=== PATIENT | male | born 1980 ===

== ENCOUNTER 2018-05-27 14:58 | Inpatient (IN) | payer MEDICAID ==
--- NOTE | 2018-05-27 17:10 | C.PDOC ---
History Of Present Illness 38 y/o male with a PMHx of ETOH abuse (drinks 3L of alcohol per day), presents accompanied by family for evaluation of intermittent frontal headache, associated with dizziness at times. Patient is also complaining of 1 year RUQ and epigastric pain with no associated nausea or vomiting. Denies head trauma. Denies any visual loss, neck stiffness, fevers, chills, or URI symptoms. Reports he drank only 1L today. Time Seen by Provider: 05/27/18 15:48 Chief Complaint (Nursing): Abdominal Pain History Per: Teller Coordinator (Sofia historic interpreter #[id number]) History/Exam Limitations: no limitations Onset/Duration Of Symptoms: Intermittent Episodes Current Symptoms Are (Timing): Still Present Location Of Pain/Discomfort: RUQ, Epigastric Past Medical History Reviewed: Historical Data, Nursing Documentation, Vital Signs Vital Signs: Last Vital Signs Temp 98.2 F 05/27/18 16:04 Pulse 93 H 05/27/18 16:04 Resp 16 05/27/18 16:04 BP 145/96 H 05/27/18 16:04 Pulse Ox 99 05/27/18 16:04 - Medical History PMH: No Chronic Diseases Surgical History: No Surg Hx Family History: States: No Known Family Hx - Social History Hx Alcohol Use: Yes Hx Substance Use: No - Immunization History Hx Tetanus Toxoid Vaccination: No Hx Influenza Vaccination: No Hx Pneumococcal Vaccination: No Review Of Systems Constitutional: Negative for: Fever, Chills Eyes: Negative for: Vision Change Cardiovascular: Negative for: Chest Pain Respiratory: Negative for: Shortness of Breath Gastrointestinal: Positive for: Abdominal Pain. Negative for: Nausea, Vomiting, Diarrhea Genitourinary: Negative for: Dysuria, Hematuria Musculoskeletal: Negative for: Neck Pain Neurological: Positive for: Headache, Dizziness. Negative for: Weakness, Numbness, Change in Speech Psych: Positive for: Withdrawal (Tremors), Other (Daily ETOH abuse). Negative for: Suicidal ideation (or homicidal) Physical Exam - Physical Exam Appears: Non-toxic, In Acute Distress (mild discomfort), Other (Appears uncomfortable) Skin: Warm, Dry Head: Atraumatic, Normacephalic Eye(s): bilateral: Normal Inspection, PERRL, EOMI Tongue: Other (Tongue fasciculations) Neck: Normal ROM Chest: Symmetrical Cardiovascular: Rhythm Regular, Other (Tachycardic) Respiratory: No Accessory Muscle Use, No Rhonchi, No Wheezing, Other (Lungs clear to auscultation) Gastrointestinal/Abdominal: Soft, Tenderness (to the epigastrium and RUQ), No D istention, No Guarding, No Rebound Extremity: Normal ROM, No Pedal Edema, No Deformity, Other (+ Tremors) Pulses: Left Radial: Normal, Right Radial: Normal Neurological/Psych: Oriented x3, Normal Cranial Nerves, Normal Motor (strength intact, equal bilaterally), Normal Sensation ED Course And Treatment - Laboratory Results Result Diagrams: 05/27/18 17:38 O2 Sat by Pulse Oximetry: 99 (RA) Pulse Ox Interpretation: Normal Medical Decision Making Medical Decision Making: Plan: Labs and EKG ordered and reviewed. Administered 1 mg IV Ativan, 20 mg IV Pepcid, and IVF banana bag. Will order CT Head to r/o intracranial abnormality, ruq sonogram to eval liver and gb. [address] Bruce, will admit to his service. Disposition Discussed With : Ortega Bruce Doctor Will See Patient In The: Hospital - Disposition Disposition: HOSPITALIZED Disposition Time: 18:16 Condition: FAIR Forms: [facility] (H[place]er) - Clinical Impression Clinical Impression: Alcohol withdrawal, Alcohol intoxication - PA / UPTWIST SPINNER / Resident Statement MD/DO has reviewed & agrees with the documentation as recorded. - Scribe Statement The provider has reviewed the documentation as recorded by the Scribe Viviana Wharton All medical record entries made by the Scribe were at my direction and pers onally dictated by me. I have reviewed the chart and agree that the record accurately reflects my personal performance of the history, physical exam, medical decision making, and the department course for this patient. I have also personally directed, reviewed, and agree with the discharge instructions and disposition.
[2018-05-27 17:41] LABS: BASO # 0.1 K/uL (0.0-0.2); BASO % 0.8 % (0.0-2.0); EOS # 0.1 K/uL (0.0-0.7); EOS % 0.8 % (0.0-4.0); HEMOGLOBIN 13.5 g/dL (12.0-18.0); LYMPH # 1.9 K/uL (1.0-4.3); LYMPH % 29.5 % (20.0-40.0); MEAN CELL VOLUME 81.7 fL (80.0-94.0); MEAN CORPUSCULAR HEMOGLOBIN 27.2 pg (27.0-31.0); MEAN CORPUSCULAR HGB CONC 33.3 g/dL (33.0-37.0); MEAN PLATELET VOLUME 6.8 fL (7.2-11.7); MONO # 0.6 K/uL (0.0-0.8); MONO % 10.1 % (0.0-10.0); NEUT # 3.8 K/uL (1.8-7.0); NEUT % 58.8 % (50.0-75.0); NRBC % 0.1 % (0.0-2.0); RBC 4.98 Mil/uL (4.40-5.90); RED CELL DISTRIBUTION WIDTH 14.2 % (11.5-14.5); WHITE BLOOD COUNT 6.4 K/uL (4.8-10.8)
[2018-05-27] MEDS ORDERED: Multivitamin (MVI) 10 ML, Thiamine 100 MG, Folic Acid 1 MG in Sodium Chloride 0.9% 1,00... IV ONE (17:41)
[2018-05-27 17:49] LABS: SQUAMOUS EPITHIAL < 1 /hpf (0-5); URINE BACTERIA RARE (<OCC); URINE BILIRUBIN NEGATIVE (NEGATIVE); URINE BLOOD 1+ (NEGATIVE); URINE CLARITY Clear (Clear); URINE COLOR Straw (YELLOW); URINE GLUCOSE (UA) NORMAL (Normal); URINE LEUKOCYTE ESTERASE NEG Leu/uL (Negative); URINE PROTEIN 2+ mg/dL (NEGATIVE); URINE UROBILINOGEN NORMAL mg/dL (0.2-1.0)
[2018-05-27 17:54] LABS: ALB/GLOB RATIO 1.4 (1.0-2.1); ALBUMIN 5.1 g/dL (3.5-5.0); ALT/SGPT 68 U/L (21-72); AST/SGOT 118 U/L (17-59); BLOOD UREA NITROGEN 3 mg/dL (9-20); GFR NON-AFRICAN AMERICAN > 60; LIPASE 219 U/L (23-300)
[2018-05-27 18:01] LABS: PROTHROMBIN TIME 10.7 SECONDS (9.7-12.2)
--- NOTE | 2018-05-27 18:27 | CT ---
Date of service: 05/27/2018 PROCEDURE: CT HEAD WITHOUT CONTRAST. HISTORY: Intermittent headache. History of ETOH., denies trauma COMPARISON: None available. TECHNIQUE: Axial computed tomography images were obtained through the head/brain without intravenous contrast. Radiation dose: Total exam DLP = 1002.57 mGy-cm. This CT exam was performed using one or more of the following dose reduction techniques: Automated exposure control, adjustment of the mA and/or kV according to patient size, and/or use of iterative reconstruction technique. FINDINGS: HEMORRHAGE: No acute parenchymal, subarachnoid or extra-axial hemorrhage. BRAIN: No evidence of large acute infarct. No obvious parenchymal nor extra-axial masses or collections seen on this noncontrast study. Very mild generalized volume loss. VENTRICLES: No obstructive hydrocephalus. CALVARIUM: Calvarium intact however note made of old fracture deformity right lamina papyracea through which small to medium amount of orbital fat has herniated occupying several collapsed right-sided ethmoid air cells. PARANASAL SINUSES: Unremarkable as visualized. No significant inflammatory changes. MASTOID AIR CELLS: Unremarkable as visualized. No inflammatory changes. OTHER FINDINGS: None. IMPRESSION: No acute intracranial hemorrhage. Mild generalized volume loss.
[2018-05-27] MEDS: Sodium Chloride 0.9% 1,000 ML IV SCH (20:30)
--- NOTE | 2018-05-27 21:00 | CP.PCM.HP ---
<Charito Avilez P - Last Filed: 05/27/18 21:19> History of Present Illness - History of Present Illness History of Present Illness: Medicine H&P CC: Abdominal pain HPI: 38 year old male with PMHx of alcohol use disorder presents to ED complaining of severe generalized abdominal pain that radiates to bilateral flanks. Pain began 5 days ago and severely worsened today. Patient states he has been drinking one to two 3L bottles of whisky per day for the past month. However today, he was only able to drink 1/2 bottle due to the abdominal pain. Associated symptoms include chills, headache, dizziness, and feeling too weak to walk. Reports nausea and 3 episodes of vomiting 2 days ago, non-bloody. Also states he has not eaten in the past 2 weeks due to excessive drinking. Denies fever, cough, shortness of breath, palpitations, hematemesis, hematochezia, dysuria, and sick contacts. States he shakes when he stops drinking. Denies history of withdrawal seizure PMHx: Alcohol use disorder PSHx: denies Meds: none Allergies: denies FamHx: denies SocHx: Drinks one to two 3L bottles of whisky per day for 1-2 months at a time for the past 3 years. Denies tobacco and drugs. Lives with a friend. Works in construction PMD: none Proxy: Tyrone Rogers, brother: [phone] Review of Systems: -Gen: No fever, + chills, + headache, No lethargy, + weakness. -HEENT: + dizziness, No change in vision, No change in hearing, No sore throat, No dysphagia, No nasal congestion, No mucous. -Cardio: No palpitations, No lower extremity edema, No orthopnea. -Resp: No cough, No dyspnea, No hemoptysis, No wheezing, No pain on inspiration. -GI: + abdominal pain, + nausea/vomiting, No diarrhea/constipation, No hematochezia, No hematemesis. -: No dysuria, No urinary freq, No incontinence, No hematuria, No change in urinary stream. -MSK: + back pain, No muscle weakness, No radiating pain. -Skin: No itching, No rash, No lesions. -Neuro: No confusion, No numbness, No tingling, No focal weakness, No radicular pain, No syncope. -Psych: No anxiety, No depression, No H/I, No S/I, No hallucinations. Present on Admission - Present on Admission Any Indicators Present on Admission: No Past Patient History - Past Social History Smoking Status: Never Smoked - PSYCHIATRIC Hx Substance Use: No - SURGICAL HISTORY Hx Surgeries: No Meds Allergies/Adverse Reactions: Allergies Allergy/AdvReac Type Severity Reaction Status Date / Time No Known Allergies Allergy Verified 05/27/18 16:14 Physical Exam - Constitutional Appears: No Acute Distress - Head Exam Head Exam: ATRAUMATIC, NORMOCEPHALIC - Eye Exam Eye Exam: EOMI, PERRL - ENT Exam ENT Exam: Mucous Membranes Dry - Neck Exam Neck exam: Positive for: Full Rom, Normal Inspection. Negative for: Lymphadenopathy - Respiratory Exam Respiratory Exam: Clear to Auscultation Bilateral, NORMAL BREATHING PATTERN. absent: Rales, Rhonchi, Wheezes - Cardiovascular Exam Cardiovascular Exam: REGULAR RHYTHM, +S1, +S2. absent: Systolic Murmur - GI/Abdominal Exam GI & Abdominal Exam: Normal Bowel Sounds, Soft, Tenderness (to palpation of the LLQ). absent: Distended, Guarding, Rebound - Extremities Exam Extremities exam: Positive for: full ROM, normal inspection, pedal pulses present. Negative for: calf tenderness, pedal edema, tenderness Additional comments: Fine tremor RUE>LUE - Back Exam Back exam: absent: CVA tenderness (L), CVA tenderness (R) - Neurological Exam Neurological exam: Alert, CN II-XII Intact, Oriented x3 - Psychiatric Exam Psychiatric exam: Depressed - Skin Additional comments: dry, decreased skin turgor Results - Vital Signs Recent Vital Signs: Last Vital Signs Temp 97.8 F 05/27/18 20:29 Pulse 79 05/27/18 20:29 Resp 18 05/27/18 20:29 BP 121/82 05/27/18 20:29 Pulse Ox 98 05/27/18 20:29 - Labs Result Diagrams: 05/27/18 17:38 05/27/18 17:38 Labs: Laboratory Results - last 24 hr 05/27/18 05/27/18 05/27/18 17:38 17:38 17:38 WBC 6.4 RBC 4.98 Hgb 13.5 Hct 40.7 MCV 81.7 MCH 27.2 MCHC 33.3 RDW 14.2 Plt Count 157 MPV 6.8 L Neut % (Auto) 58.8 Lymph % (Auto) 29.5 [place] % (Auto) 10.1 H Eos % (Auto) 0.8 Baso % (Auto) 0.8 Neut # (Auto) 3.8 Lymph # (Auto) 1.9 [place] # (Auto) 0.6 Eos # (Auto) 0.1 Baso # (Auto) 0.1 PT 10.7 INR 1.0 APTT 31 Sodium 141 Potassium 3.8 Chloride 101 Carbon Dioxide 27 Anion Gap 17 BUN 3 L Creatinine 0.6 L Est GFR ( Amer) > 60 Est GFR (Non-Af Amer) > 60 Random Glucose 109 Calcium 9.0 Phosphorus Magnesium Total Bilirubin 0.4 AST 118 H ALT 68 Alkaline Phosphatase 162 H Total Protein 8.8 H Albumin 5.1 H Globulin 3.7 Albumin/Globulin Ratio 1.4 Lipase 219 Urine Color Urine Clarity Urine pH Ur Specific [place] Urine Protein Urine Glucose (UA) Urine Ketones Urine Blood Urine Nitrate Urine Bilirubin Urine Urobilinogen Ur Leukocyte Esterase Urine WBC (Auto) Urine RBC (Auto) Ur Squamous Epith Cells Urine Bacteria Alcohol, Quantitative 210 H Influenza Typ A,B (EIA) 05/27/18 05/27/18 05/27/18 17:43 19:27 20:00 WBC RBC Hgb Hct MCV MCH MCHC RDW Plt Count MPV Neut % (Auto) Lymph % (Auto) [place] % (Auto) Eos % (Auto) Baso % (Auto) Neut # (Auto) Lymph # (Auto) [place] # (Auto) Eos # (Auto) Baso # (Auto) PT INR APTT Sodium Potassium Chloride Carbon Dioxide Anion Gap BUN Creatinine Est GFR ( Amer) Est GFR (Non-Af Amer) Random Glucose Calcium Phosphorus 4.6 H Magnesium 2.3 Total Bilirubin AST ALT Alkaline Phosphatase Total Protein Albumin Globulin Albumin/Globulin Ratio Lipase Urine Color Straw Urine Clarity Clear Urine pH 6.0 Ur Specific [place] 1.008 Urine Protein 2+ H Urine Glucose (UA) Normal Urine Ketones Negative Urine Blood 1+ H Urine Nitrate Negative Urine Bilirubin Negative Urine Urobilinogen Normal Ur Leukocyte Esterase Neg Urine WBC (Auto) 1 Urine RBC (Auto) < 1 Ur Squamous Epith Cells < 1 Urine Bacteria Rare Alcohol, Quantitative Influenza Typ A,B (EIA) Negative for flu a/b Assessment & Plan - Assessment and Plan (Free Text) Plan: 38 year old male with PMHx of alcohol use disorder admitted for alcohol withdrawal. Alcohol Withdrawal -Alcohol level on admission 210 -Ativan 2mg IVP Q6H -Ativan 1mg IVP Q2H PRN -Thiamine 100mg IV daily -Folic acid 1mg PO daily -Vitamin B Complex 1tab PO daily -CIWA -Seizure precautions -Aspiration precautions Dehydration -NS @124 mls/hour Gastritis -Protonix 40mg IV daily -Clear liquid diet Ppx -SCD -Protonix 40mg IV daily Case discussed with Dr. Perry. Charito Avilez, PGY-1 <Larry Perry P - Last Filed: 05/28/18 07:58> Results - Vital Signs Recent Vital Signs: Last Vital Signs Temp 98.7 F 05/28/18 03:53 Pulse 92 H 05/28/18 03:58 Resp 20 05/28/18 03:53 BP 125/81 05/28/18 03:53 Pulse Ox 100 05/28/18 03:53 - Labs Result Diagrams: 05/28/18 06:38 05/28/18 06:38 Labs: Laboratory Results - last 24 hr 05/27/18 05/27/18 05/27/18 17:38 17:38 17:38 WBC 6.4 RBC 4.98 Hgb 13.5 Hct 40.7 MCV 81.7 MCH 27.2 MCHC 33.3 RDW 14.2 Plt Count 157 MPV 6.8 L Neut % (Auto) 58.8 Lymph % (Auto) 29.5 [place] % (Auto) 10.1 H Eos % (Auto) 0.8 Baso % (Auto) 0.8 Neut # (Auto) 3.8 Lymph # (Auto) 1.9 [place] # (Auto) 0.6 Eos # (Auto) 0.1 Baso # (Auto) 0.1 PT 10.7 INR 1.0 APTT 31 Sodium 141 Potassium 3.8 Chloride 101 Carbon Dioxide 27 Anion Gap 17 BUN 3 L Creatinine 0.6 L Est GFR ( Amer) > 60 Est GFR (Non-Af Amer) > 60 Random Glucose 109 Calcium 9.0 Phosphorus Magnesium Total Bilirubin 0.4 AST 118 H ALT 68 Alkaline Phosphatase 162 H Total Protein 8.8 H Albumin 5.1 H Globulin 3.7 Albumin/Globulin Ratio 1.4 Lipase 219 Urine Color Urine Clarity Urine pH Ur Specific [place] Urine Protein Urine Glucose (UA) Urine Ketones Urine Blood Urine Nitrate Urine Bilirubin Urine Urobilinogen Ur Leukocyte Esterase Urine WBC (Auto) Urine RBC (Auto) Ur Squamous Epith Cells Urine Bacteria Alcohol, Quantitative 210 H Influenza Typ A,B (EIA) 05/27/18 05/27/18 05/27/18 17:43 19:27 20:00 WBC RBC Hgb Hct MCV MCH MCHC RDW Plt Count MPV Neut % (Auto) Lymph % (Auto) [place] % (Auto) Eos % (Auto) Baso % (Auto) Neut # (Auto) Lymph # (Auto) [place] # (Auto) Eos # (Auto) Baso # (Auto) PT INR APTT Sodium Potassium Chloride Carbon Dioxide Anion Gap BUN Creatinine Est GFR ( Amer) Est GFR (Non-Af Amer) Random Glucose Calcium Phosphorus 4.6 H Magnesium 2.3 Total Bilirubin AST ALT Alkaline Phosphatase Total Protein Albumin Globulin Albumin/Globulin Ratio Lipase Urine Color Straw Urine Clarity Clear Urine pH 6.0 Ur Specific [place] 1.008 Urine Protein 2+ H Urine Glucose (UA) Normal Urine Ketones Negative Urine Blood 1+ H Urine Nitrate Negative Urine Bilirubin Negative Urine Urobilinogen Normal Ur Leukocyte Esterase Neg Urine WBC (Auto) 1 Urine RBC (Auto) < 1 Ur Squamous Epith Cells < 1 Urine Bacteria Rare Alcohol, Quantitative Influenza Typ A,B (EIA) Negative for flu a/b 05/27/18 05/28/18 05/28/18 23:55 06:38 06:38 WBC 5.3 RBC 4.29 L Hgb 11.9 L Hct 35.7 MCV 83.1 MCH 27.8 MCHC 33.5 RDW 14.3 Plt Count 133 MPV 7.3 Neut % (Auto) 69.0 Lymph % (Auto) 17.[address] % (Auto) 10.4 H Eos % (Auto) 2.1 Baso % (Auto) 0.9 Neut # (Auto) 3.7 Lymph # (Auto) 0.[address] [place] # (Auto) 0.6 Eos # (Auto) 0.1 Baso # (Auto) 0.0 PT INR APTT Sodium 139 139 Potassium 3.5 L 4.0 Chloride 102 104 Carbon Dioxide 27 27 Anion Gap 14 12 BUN 3 L 4 L Creatinine 0.6 L 0.6 L Est GFR ( Amer) > 60 > 60 Est GFR (Non-Af Amer) > 60 > 60 Random Glucose 88 95 Calcium 8.5 L 8.6 Phosphorus 4.5 4.0 Magnesium 2.0 1.9 Total Bilirubin 0.5 0.7 AST 97 H 108 H ALT 61 63 Alkaline Phosphatase 115 114 Total Protein 7.5 7.3 Albumin 4.1 4.1 Globulin 3.4 3.2 Albumin/Globulin Ratio 1.2 1.3 Lipase Urine Color Urine Clarity Urine pH Ur Specific [place] Urine Protein Urine Glucose (UA) Urine Ketones Urine Blood Urine Nitrate Urine Bilirubin Urine Urobilinogen Ur Leukocyte Esterase Urine WBC (Auto) Urine RBC (Auto) Ur Squamous Epith Cells Urine Bacteria Alcohol, Quantitative Influenza Typ A,B (EIA) Attending/Attestation - Attestation I have personally seen and examined this patient.: Yes I have fully participated in the care of the patient.: Yes I have reviewed all pertinent clinical information: Yes Notes (Text): 05/28/18 07:56 Assessment Alcoholic gastritis, unable to binge any more hence presented to ER Clinical dehydration malnutrition Plan * Scheduled and prn iv ativan * High likely quintanilla for withdrawal despite bzd * Monitor and replace electrolytes * Thiamine, MVT, FA * Counselled about alcohol cessation * See orders for detail.
[2018-05-28 00:20] LABS: ALB/GLOB RATIO 1.2 (1.0-2.1); ALBUMIN 4.1 g/dL (3.5-5.0); ALT/SGPT 61 U/L (21-72); AST/SGOT 97 U/L (17-59); BLOOD UREA NITROGEN 3 mg/dL (9-20); CALCIUM 8.5 mg/dl (8.6-10.4); GFR NON-AFRICAN AMERICAN > 60
[2018-05-28] MEDS ORDERED: Potassium Chloride 20 mEq ER Tab PO ONE (03:19)
[2018-05-28] MEDS: Sodium Chloride 0.9% 1,000 ML IV SCH ×4 (04:30→19:30)
[2018-05-28 06:50] LABS: BASO % 0.9 % (0.0-2.0); EOS # 0.1 K/uL (0.0-0.7); EOS % 2.1 % (0.0-4.0); HEMOGLOBIN 11.9 g/dL (12.0-18.0); LYMPH # 0.9 K/uL (1.0-4.3); LYMPH % 17.6 % (20.0-40.0); MEAN CELL VOLUME 83.1 fL (80.0-94.0); MEAN CORPUSCULAR HEMOGLOBIN 27.8 pg (27.0-31.0); MEAN CORPUSCULAR HGB CONC 33.5 g/dL (33.0-37.0); MEAN PLATELET VOLUME 7.3 fL (7.2-11.7); MONO # 0.6 K/uL (0.0-0.8); MONO % 10.4 % (0.0-10.0); NEUT # 3.7 K/uL (1.8-7.0); RBC 4.29 Mil/uL (4.40-5.90); RED CELL DISTRIBUTION WIDTH 14.3 % (11.5-14.5); WHITE BLOOD COUNT 5.3 K/uL (4.8-10.8)
[2018-05-28 07:47] LABS: ALB/GLOB RATIO 1.3 (1.0-2.1); ALBUMIN 4.1 g/dL (3.5-5.0); ALT/SGPT 63 U/L (21-72); AST/SGOT 108 U/L (17-59); BLOOD UREA NITROGEN 4 mg/dL (9-20); CALCIUM 8.6 mg/dl (8.6-10.4); GFR NON-AFRICAN AMERICAN > 60
--- NOTE | 2018-05-28 08:56 | US ---
Date of service: 05/27/2018 HISTORY: ruq pain. hx etoh abuse COMPARISON: None. TECHNIQUE: Grayscale imaging was performed. FINDINGS: LIVER: Measures 14.6 cm in length. There is diffuse increased echogenicity of the liver parenchyma. No mass. No intrahepatic bile duct dilatation. GALLBLADDER: There are no gallstones, wall thickening or pericholecystic fluid. The sonographic Zurita's sign is negative. COMMON BILE DUCT: Measures 2.0 mm. No stones. No dilatation. PANCREAS: Unremarkable as visualized. No mass. No ductal dilatation. RIGHT KIDNEY: Measures 9.9 cm in length. Normal echogenicity. No calculus, mass, or hydronephrosis. AORTA: No aneurysmal dilatation. IVC: Unremarkable. OTHER FINDINGS: None . IMPRESSION: Fatty liver. No cholelithiasis or biliary dilatation. A preliminary report was provided by [employer].
--- NOTE | 2018-05-28 09:10 | CP.PCM.PN ---
<Sommer Rahman - Last Filed: 05/28/18 09:07> Subjective - Date & Time of Evaluation Date of Evaluation: 05/28/18 Time of Evaluation: 09:07 - Subjective Subjective: Progress note for Dr. Benitez Patient was seen and examined at bedside in no acute distress. Patient says he has been drink 1 liter of whiskey for the past 5 days because he didnt have work. He says he does not usually drink that much. He reports his epigastric pa in is better than yesterday, and he was able to tolerate his breakfast. He has not had a BM since being in the hospital. The patient currently denies having tremors, a/v/t hallucinations. He is alert and orientedx3. He denies nausea, vomiting, fevers, headaches, diarrhea, blood in stool, dyspnea, chest pain, and palpitations. Objective - Vital Signs/Intake and Output Vital Signs (last 24 hours): Temp Pulse Resp BP Pulse Ox 98.4 F 94 H 18 109/72 100 05/28/18 09:01 05/28/18 09:01 05/28/18 09:01 05/28/18 09:01 05/28/18 09:01 - Medications Medications: Current Medications Folic Acid (Folic Acid) 1 mg PO DAILY [facility] Sodium Chloride (Sodium Chloride 0.9%) 1,000 mls @ 125 mls/hr IV .Q8H [facility] Last Admin: 05/27/18 20:30 Dose: 125 mls/hr Lorazepam (Ativan) 2 mg IVP Q3H [facility] Pantoprazole Sodium (Protonix Inj) 40 mg IVP DAILY [facility] Thiamine HCl (Vitamin B1 Inj) 100 mg IV DAILY [facility] Vitamin B Complex/Folic Acid (Berroca) 1 tab PO DAILY [facility] - Labs Labs: 05/28/18 06:38 05/28/18 06:38 PT 10.7 SECONDS (9.7-12.2) 05/27/18 17:38 INR 1.0 05/27/18 17:38 APTT 31 SECONDS (21-34) 05/27/18 17:38 - Constitutional Appears: No Acute Distress - Head Exam Head Exam: NORMAL INSPECTION - Eye Exam Eye Exam: EOMI, Normal appearance - ENT Exam ENT Exam: Mucous Membranes Moist - Respiratory Exam Respiratory Exam: Clear to Ausculation Bilateral, NORMAL BREATHING PATTERN. absent: Rales, Rhonchi, Wheezes, Respiratory Distress - Cardiovascular Exam Cardiovascular Exam: REGULAR RHYTHM, +S1, +S2 - GI/Abdominal Exam GI & Abdominal Exam: Soft, Tenderness (mild epigastric), Normal Bowel Sounds. absent: Distended, Firm, Guarding - Extremities Exam Extremities Exam: Normal Inspection. absent: Pedal Edema, Tenderness - Neurological Exam Neurological Exam: Alert, Awake, Oriented x3 Additional comments: tremulous - Psychiatric Exam Psychiatric exam: Normal Affect, Normal Mood - Skin Skin Exam: Dry, Intact, Normal Color, Warm Assessment and Plan - Assessment and Plan (Free Text) Plan: 38 year old male with PMHx of alcohol use disorder admitted for alcohol withdrawal. Alcohol Withdrawal - Alcohol level on admission 210 - Ativan 2mg IVP Q3h (will decrease when tremors and symptoms of withdrawal decrease) - Ativan 1mg IVP Q2H PRN - Thiamine 100mg IV daily - Folic acid 1mg PO daily - Vitamin B Complex 1tab PO daily - CIWA - Seizure precautions - Aspiration precautions Dehydration - NS @125 mls/hour Gastritis - Protonix 40mg IV daily - Clear liquid diet, advance diet as tolerated - Abdominal US ordered due to abdominal pain: fatty liver, no cholelithiasis or biliary dilatation Headache - Likley secondary to alcohol abuse, dehydration, and not eating - Head CT: negative Ppx - SCD - Protonix 40mg IV daily - CIWA, seizure, aspiration precautions Case discussed with Dr. Eli Rodriguez, PGY2 <Alonso Benitez H - Last Filed: 05/28/18 09:56> Objective - Vital Signs/Intake and Output Vital Signs (last 24 hours): Temp Pulse Resp BP Pulse Ox 98.4 F 94 H 18 109/72 100 05/28/18 09:01 05/28/18 09:01 05/28/18 09:01 05/28/18 09:01 05/28/18 09:01 - Medications Medications: Current Medications Folic Acid (Folic Acid) 1 mg PO DAILY [facility] Last Admin: 05/28/18 09:21 Dose: 1 mg Sodium Chloride (Sodium Chloride 0.9%) 1,000 mls @ 125 mls/hr IV .Q8H [facility] Last Admin: 05/28/18 09:07 Dose: 125 mls/hr Lorazepam (Ativan) 2 mg IVP Q3H [facility] Last Admin: 05/28/18 09:37 Dose: Not Given Pantoprazole Sodium (Protonix Inj) 40 mg IVP DAILY [facility] Last Admin: 05/28/18 09:23 Dose: 40 mg Thiamine HCl (Vitamin B1 Inj) 100 mg IV DAILY [facility] Last Admin: 05/28/18 09:22 Dose: 100 mg Vitamin B Complex/Folic Acid (Berroca) 1 tab PO DAILY [facility] - Labs Labs: 05/28/18 06:38 05/28/18 06:38 PT 10.7 SECONDS (9.7-12.2) 05/27/18 17:38 INR 1.0 05/27/18 17:38 APTT 31 SECONDS (21-34) 05/27/18 17:38 Attending/Attestation - Attestation I have personally seen and examined this patient.: Yes I have fully participated in the care of the patient.: Yes I have reviewed all pertinent clinical information, including history, physical exam and plan: Yes Notes (Text): 05/28/18 09:54 Medical attending: Patient was seen and examined by me. Agree with the above n ote by the resident The patient was not in any acute distress when I came and saw The patient was reluctant to talk about his alcohol history until we had a pre assembly wirer help discuss with him As mentioned previously he has not been eating for over 5 days and has been drinking alcohol instead Will conitnue with IVF, also we changed the IV ativan to be more frequent as well since he is having tremors, and reports feeling very anxious. Alonso Benitez
[2018-05-28] MEDS: Thiamine 100 mg/ml Inj IV SCH (09:22)
[2018-05-28] MEDS ORDERED: Thiamine 100 mg/ml Inj IV SCH (10:00)
[2018-05-28 17:14] VITALS: RESP 20
[2018-05-29] MEDS: Sodium Chloride 0.9% 1,000 ML IV SCH ×3 (03:45→21:30)
[2018-05-29 08:08] LABS: BASO % 0.6 % (0.0-2.0); EOS # 0.2 K/uL (0.0-0.7); EOS % 2.8 % (0.0-4.0); HEMOGLOBIN 11.7 g/dL (12.0-18.0); LYMPH # 0.8 K/uL (1.0-4.3); LYMPH % 14.5 % (20.0-40.0); MEAN CELL VOLUME 83.5 fL (80.0-94.0); MEAN CORPUSCULAR HEMOGLOBIN 28.1 pg (27.0-31.0); MEAN CORPUSCULAR HGB CONC 33.6 g/dL (33.0-37.0); MEAN PLATELET VOLUME 7.6 fL (7.2-11.7); MONO # 0.4 K/uL (0.0-0.8); MONO % 7.3 % (0.0-10.0); NEUT # 4.2 K/uL (1.8-7.0); NEUT % 74.8 % (50.0-75.0); NRBC % 0.1 % (0.0-2.0); RBC 4.17 Mil/uL (4.40-5.90); WHITE BLOOD COUNT 5.6 K/uL (4.8-10.8)
--- NOTE | 2018-05-29 08:12 | CP.PCM.PN ---
<Sommer Rahman - Last Filed: 05/29/18 08:15> Subjective - Date & Time of Evaluation Date of Evaluation: 05/29/18 Time of Evaluation: 08:11 - Subjective Subjective: Progress note for Dr. Benitez Patient was seen and examined at bedside in no acute distress. Patient reports feeling better than yesterday and no longer has abdominal pain. The patient tolerated his breakfast this morning. He denies a/v/t hallucinations, tremors, palpitations, dyspnea, dizziness, headaches, nausea, vomiting, fevers. He is alert and oriented x3. Objective - Vital Signs/Intake and Output Vital Signs (last 24 hours): Temp Pulse Resp BP Pulse Ox 98.7 F 74 20 119/71 99 05/29/18 03:45 05/29/18 03:48 05/29/18 03:45 05/29/18 03:45 05/29/18 03:45 Intake and Output: 05/29/18 05/29/18 06:59 18:59 Intake Total 1600 Balance 1600 - Medications Medications: Current Medications Folic Acid (Folic Acid) 1 mg PO DAILY [facility] Last Admin: 05/28/18 09:21 Dose: 1 mg Sodium Chloride (Sodium Chloride 0.9%) 1,000 mls @ 125 mls/hr IV .Q8H [facility] Last Admin: 05/29/18 03:45 Dose: 125 mls/hr Lorazepam (Ativan) 2 mg IVP Q3H [facility] Last Admin: 05/29/18 06:15 Dose: Not Given Pantoprazole Sodium (Protonix Inj) 40 mg IVP DAILY [facility] Last Admin: 05/28/18 09:23 Dose: 40 mg Thiamine HCl (Vitamin B1 Inj) 100 mg IV DAILY [facility] Last Admin: 05/28/18 09:22 Dose: 100 mg Vitamin B Complex/Folic Acid (Berroca) 1 tab PO DAILY [facility] Last Admin: 05/28/18 12:32 Dose: 1 tab - Labs Labs: 05/28/18 06:38 05/28/18 06:38 PT 10.7 SECONDS (9.7-12.2) 05/27/18 17:38 INR 1.0 05/27/18 17:38 APTT 31 SECONDS (21-34) 05/27/18 17:38 - Additional Findings Additional findings: - Constitutional Appears: No Acute Distress - Head Exam Head Exam: NORMAL INSPECTION - Eye Exam Eye Exam: EOMI, Normal appearance - ENT Exam ENT Exam: Mucous Membranes Moist - Respiratory Exam Respiratory Exam: Clear to Ausculation Bilateral, NORMAL BREATHING PATTERN. absent: Rales, Rhonchi, Wheezes, Respiratory Distress - Cardiovascular Exam Cardiovascular Exam: REGULAR RHYTHM, +S1, +S2 - GI/Abdominal Exam GI & Abdominal Exam: Soft, Tenderness (mild epigastric), Normal Bowel Sounds. absent: Distended, Firm, Guarding - Extremities Exam Extremities Exam: Normal Inspection. absent: Pedal Edema, Tenderness - Neurological Exam Neurological Exam: Alert, Awake, Oriented x3 Additional comments: tremulous - Psychiatric Exam Psychiatric exam: Normal Affect, Normal Mood - Skin Skin Exam: Dry, Intact, Normal Color, Warm Assessment and Plan - Assessment and Plan (Free Text) Plan: 38 year old male with PMHx of alcohol use disorder admitted for alcohol withdrawal. Alcohol Withdrawal - Alcohol level on admission 210 - Ativan 2mg IVP Q6h (changed on 05/29/18 from Q3h as symptoms have improved) - Ativan 1mg IVP Q3H PRN - Thiamine 100mg IV daily - Folic acid 1mg PO daily - Vitamin B Complex 1tab PO daily - CIWA - Seizure precautions - Aspiration precautions Dehydration - NS @125 mls/hour Gastritis - Protonix 40mg IV daily - Advancing diet to bland diet - Abdominal US ordered due to abdominal pain: fatty liver, no cholelithiasis or biliary dilatation Headache, resolved - Likely secondary to alcohol abuse, dehydration, and not eating - Head CT: negative Ppx - SCD - Protonix 40mg IV daily - CIWA, seizure, aspiration precautions Case discussed with Dr. Eli Rodriguez, PGY2 <Alonso Benitez H - Last Filed: 05/29/18 10:05> Objective - Vital Signs/Intake and Output Vital Signs (last 24 hours): Temp Pulse Resp BP Pulse Ox 98.3 F 79 20 104/61 99 05/29/18 09:24 05/29/18 09:24 05/29/18 09:24 05/29/18 09:24 05/29/18 09:24 Intake and Output: 05/29/18 05/29/18 06:59 18:59 Intake Total 1600 Balance 1600 - Medications Medications: Current Medications Folic Acid (Folic Acid) 1 mg PO DAILY [facility] Last Admin: 05/29/18 09:08 Dose: 1 mg Sodium Chloride (Sodium Chloride 0.9%) 1,000 mls @ 125 mls/hr IV .Q8H [facility] Last Admin: 05/29/18 03:45 Dose: 125 mls/hr Lorazepam (Ativan) 2 mg IVP Q6H [facility] Last Admin: 05/29/18 09:41 Dose: 2 mg Lorazepam (Ativan) 1 mg IVP Q3H PRN PRN Reason: Symptoms of alcohol withdrawl Pantoprazole Sodium (Protonix Inj) 40 mg IVP DAILY [facility] Last Admin: 05/29/18 09:08 Dose: 40 mg Thiamine HCl (Vitamin B1 Inj) 100 mg IV DAILY [facility] Last Admin: 05/29/18 09:11 Dose: 100 mg Vitamin B Complex/Folic Acid (Berroca) 1 tab PO DAILY [facility] Last Admin: 05/29/18 09:12 Dose: 1 tab - Labs Labs: 05/29/18 07:50 05/29/18 07:50 PT 10.7 SECONDS (9.7-12.2) 05/27/18 17:38 INR 1.0 05/27/18 17:38 APTT 31 SECONDS (21-34) 05/27/18 17:38 Attending/Attestation - Attestation I have personally seen and examined this patient.: Yes I have fully participated in the care of the patient.: Yes I have reviewed all pertinent clinical information, including history, physical exam and plan: Yes Notes (Text): 05/29/18 10:04 Medical attending: Patient was seen and examined by me. Agree with the above note by the resident The patient was not in any acute distress when we came and saw, he did not appear tremulous, he was awake, alert and cooperative. The patient wanted to try a more advance diet so we ordered this Also the patient will have decreased IV ativan today and possibly tommorow we can start a CIWA protocol or do our own tapering oral regimen Alonso Benitez
[2018-05-29 08:22] LABS: ALB/GLOB RATIO 1.3 (1.0-2.1); ALT/SGPT 68 U/L (21-72); AST/SGOT 153 U/L (17-59); BLOOD UREA NITROGEN 3 mg/dL (9-20); CALCIUM 8.4 mg/dl (8.6-10.4); GFR NON-AFRICAN AMERICAN > 60
[2018-05-29] MEDS: Thiamine 100 mg/ml Inj IV SCH (09:11)
[2018-05-30 07:32] LABS: BASO % 0.4 % (0.0-2.0); EOS # 0.2 K/uL (0.0-0.7); EOS % 2.9 % (0.0-4.0); HEMOGLOBIN 12.4 g/dL (12.0-18.0); LYMPH # 0.8 K/uL (1.0-4.3); LYMPH % 14.9 % (20.0-40.0); MEAN CELL VOLUME 83.7 fL (80.0-94.0); MEAN CORPUSCULAR HEMOGLOBIN 29.5 pg (27.0-31.0); MEAN CORPUSCULAR HGB CONC 35.2 g/dL (33.0-37.0); MEAN PLATELET VOLUME 7.7 fL (7.2-11.7); MONO # 0.5 K/uL (0.0-0.8); MONO % 8.9 % (0.0-10.0); NEUT % 72.9 % (50.0-75.0); RBC 4.21 Mil/uL (4.40-5.90); WHITE BLOOD COUNT 5.5 K/uL (4.8-10.8)
[2018-05-30 07:53] LABS: ALB/GLOB RATIO 1.3 (1.0-2.1); ALBUMIN 4.1 g/dL (3.5-5.0); ALT/SGPT 109 U/L (21-72); AST/SGOT 220 U/L (17-59); BLOOD UREA NITROGEN 3 mg/dL (9-20); CALCIUM 8.4 mg/dl (8.6-10.4); GFR NON-AFRICAN AMERICAN > 60
--- NOTE | 2018-05-30 09:14 | CP.PCM.PN ---
Subjective - Date & Time of Evaluation Date of Evaluation: 05/30/18 Time of Evaluation: 09:10 - Subjective Subjective: Andres Barbosa, PGY1 progress note for Dr. Reese Pt was examined at bedside this morning. He reports some dizziness, but denies nausea or vomiting. He says he feels dizzy and has a headache when waking up in the morning, which improves throughout the day. Pt admits to tremors at this time. He denies chest pain, abdominal pain, shortness of breath, diarrhea, dysuria. Objective - Vital Signs/Intake and Output Vital Signs (last 24 hours): Temp Pulse Resp BP Pulse Ox 98.2 F 85 20 119/75 99 05/30/18 07:00 05/30/18 07:30 05/30/18 07:00 05/30/18 07:00 05/30/18 07:00 Intake and Output: 05/30/18 05/30/18 06:59 18:59 Intake Total 1300 Output Total 1500 Balance -200 - Medications Medications: Current Medications Folic Acid (Folic Acid) 1 mg PO DAILY [facility] Last Admin: 05/29/18 09:08 Dose: 1 mg Sodium Chloride (Sodium Chloride 0.9%) 1,000 mls @ 125 mls/hr IV .Q8H [facility] Last Admin: 05/29/18 21:30 Dose: 125 mls/hr Influenza Virus Vaccine (Flucelvax Quad [id number] Syr) 60 mcg IM .ONCE ONE Stop: 05/31/18 12:01 Lorazepam (Ativan) 2 mg IVP Q6H [facility] Last Admin: 05/30/18 03:00 Dose: Not Given Lorazepam (Ativan) 1 mg IVP Q3H PRN PRN Reason: Symptoms of alcohol withdrawl Pantoprazole Sodium (Protonix Inj) 40 mg IVP DAILY [facility] Last Admin: 05/29/18 09:08 Dose: 40 mg Pneumococcal Polyvalent Vaccine (Pneumovax 23 Vaccine) 0.5 ml IM .ONCE ONE Stop: 05/31/18 10:01 Thiamine HCl (Vitamin B1 Inj) 100 mg IV DAILY [facility] Last Admin: 05/29/18 09:11 Dose: 100 mg Vitamin B Complex/Folic Acid (Berroca) 1 tab PO DAILY [facility] Last Admin: 05/29/18 09:12 Dose: 1 tab - Labs Labs: 05/30/18 07:00 01/14/19 07:28 PT 10.7 SECONDS (9.7-12.2) 05/27/18 17:38 INR 1.0 05/27/18 17:38 APTT 31 SECONDS (21-34) 05/27/18 17:38 - Additional Findings Additional findings: Appears: No Acute Distress - Head Exam Head Exam: NORMAL INSPECTION - Eye Exam Eye Exam: EOMI, Normal appearance - ENT Exam ENT Exam: Mucous Membranes Moist - Respiratory Exam Respiratory Exam: Clear to Ausculation Bilateral, NORMAL BREATHING PATTERN. absent: Rales, Rhonchi, Wheezes, Respiratory Distress - Cardiovascular Exam Cardiovascular Exam: REGULAR RHYTHM, +S1, +S2 - GI/Abdominal Exam GI & Abdominal Exam: Soft, Tenderness (mild epigastric), Normal Bowel Sounds. absent: Distended, Firm, Guarding - Extremities Exam Extremities Exam: Normal Inspection. absent: Pedal Edema, Tenderness - Neurological Exam Neurological Exam: Alert, Awake, Oriented x3, CN II-XII intact Additional comments: tremulous - Psychiatric Exam Psychiatric exam: Normal Affect, Normal Mood - Skin Skin Exam: Dry, Intact, Normal Color, Warm Assessment and Plan - Assessment and Plan (Free Text) Assessment: 38 year old male with PMHx of alcohol use disorder admitted for alcohol withdrawal. Plan: Alcohol Withdrawal - Alcohol level on admission 210 - Ativan 1mg PO Q6h PRN - Thiamine 100mg IV daily - Folic acid 1mg PO daily - Vitamin B Complex 1tab PO daily - CIWA - Seizure precautions - Aspiration precautions - cessation counseling Gastritis - Abdominal US: fatty liver, no cholelithiasis or biliary dilatation - Protonix 40mg IV daily - Advancing diet to bland diet Ppx DVT: SCDs GI: Protonix 40mg IV daily - CIWA, seizure, aspiration precautions [place] diet Dispo: Likely D/C tomorrow as withdrawal symptoms are diminishing Pt seen and case discussed with Dr. Reese
[2018-05-30] MEDS: Thiamine 100 mg/ml Inj IV SCH (09:41)
[2018-05-30] MEDS: Sodium Chloride 0.9% 1,000 ML IV SCH (10:04)
[2018-05-30] MEDS: Pantoprazole 40 mg EC Tab PO SCH (10:04)
[2018-05-31 07:43] LABS: BASO % 0.4 % (0.0-2.0); EOS # 0.1 K/uL (0.0-0.7); EOS % 1.7 % (0.0-4.0); HEMOGLOBIN 12.7 g/dL (12.0-18.0); LYMPH # 1.3 K/uL (1.0-4.3); LYMPH % 22.7 % (20.0-40.0); MEAN CELL VOLUME 82.9 fL (80.0-94.0); MEAN CORPUSCULAR HEMOGLOBIN 28.2 pg (27.0-31.0); MEAN PLATELET VOLUME 7.1 fL (7.2-11.7); MONO # 0.6 K/uL (0.0-0.8); MONO % 10.6 % (0.0-10.0); NEUT # 3.8 K/uL (1.8-7.0); NEUT % 64.6 % (50.0-75.0); RBC 4.5 Mil/uL (4.40-5.90); RED CELL DISTRIBUTION WIDTH 14.4 % (11.5-14.5); WHITE BLOOD COUNT 5.8 K/uL (4.8-10.8)
[2018-05-31 08:04] VITALS: O2SAT 99
[2018-05-31 08:18] LABS: ALB/GLOB RATIO 1.4 (1.0-2.1); ALBUMIN 4.5 g/dL (3.5-5.0); ALT/SGPT 97 U/L (21-72); AST/SGOT 114 U/L (17-59); BLOOD UREA NITROGEN 7 mg/dL (9-20); CALCIUM 9.1 mg/dl (8.6-10.4); GFR NON-AFRICAN AMERICAN > 60
[2018-05-31] MEDS: Thiamine 100 mg/ml Inj IV SCH (09:32)
[2018-05-31] MEDS: Pantoprazole 40 mg EC Tab PO SCH (09:32)
[2018-05-31] MEDS ORDERED: Pneumococcal 23-Valent Vaccine IM ONE (10:00)
[2018-05-31] MEDS ORDERED: Influenza Vaccine 60 mcg/0.5 mL SYR (4YR UP) IM ONE (12:00)
--- NOTE | 2018-05-31 13:43 | CP.PCM.DIS ---
Provider - Provider Date of Admission: 05/29/18 15:18 Attending physician: Alonso Benitez DO Time Spent in preparation of Discharge (in minutes): 45 Hospital Course - Lab Results Lab Results: Most Recent Lab Values WBC 5.8 K/uL (4.8-10.8) 05/31/18 07:33 RBC 4.50 Mil/uL (4.40-5.90) 05/31/18 07:33 Hgb 12.7 g/dL (12.0-18.0) 05/31/18 07:33 Hct 37.3 % (35.0-51.0) 05/31/18 07:33 MCV 82.9 fL (80.0-94.0) 05/31/18 07:33 MCH 28.2 pg (27.0-31.0) 05/31/18 07:33 MCHC 34.0 g/dL (33.0-37.0) 05/31/18 07:33 RDW 14.4 % (11.5-14.5) 05/31/18 07:33 Plt Count 212 K/uL (130-400) 05/31/18 07:33 MPV 7.1 fL (7.2-11.7) L 05/31/18 07:33 Neut % (Auto) 64.6 % (50.0-75.0) 05/31/18 07:33 Lymph % (Auto) 22.7 % (20.0-40.0) 05/31/18 07:33 [place] % (Auto) 10.6 % (0.0-10.0) H 05/31/18 07:33 Eos % (Auto) 1.7 % (0.0-4.0) 05/31/18 07:33 Baso % (Auto) 0.4 % (0.0-2.0) 05/31/18 07:33 Neut # (Auto) 3.8 K/uL (1.8-7.0) 05/31/18 07:33 Lymph # (Auto) 1.3 K/uL (1.0-4.3) 05/31/18 07:33 [place] # (Auto) 0.6 K/uL (0.0-0.8) 05/31/18 07:33 Eos # (Auto) 0.1 K/uL (0.0-0.7) 05/31/18 07:33 Baso # (Auto) 0.0 K/uL (0.0-0.2) 05/31/18 07:33 PT 10.7 SECONDS (9.7-12.2) 05/27/18 17:38 INR 1.0 05/27/18 17:38 APTT 31 SECONDS (21-34) 05/27/18 17:38 Sodium 137 mmol/L (132-148) 05/31/18 07:33 Potassium 4.2 mmol/L (3.6-5.2) 05/31/18 07:33 Chloride 104 mmol/L (98-107) 05/31/18 07:33 Carbon Dioxide 26 mmol/L (22-30) 05/31/18 07:33 Anion Gap 11 (10-20) 05/31/18 07:33 BUN 7 mg/dL (9-20) L 05/31/18 07:33 Creatinine 0.7 mg/dL (0.8-1.5) L 05/31/18 07:33 Est GFR ( Amer) > 60 05/31/18 07:33 Est GFR (Non-Af Amer) > 60 05/31/18 07:33 POC Glucose (mg/dL) 81 mg/dL (65-110) 05/28/18 11:30 Random Glucose 110 mg/dL (75-110) 05/31/18 07:33 Calcium 9.1 mg/dl (8.6-10.4) 05/31/18 07:33 Phosphorus 4.0 mg/dL (2.5-4.5) 05/28/18 06:38 Magnesium 1.9 mg/dL (1.6-2.3) 05/31/18 07:33 Total Bilirubin 0.3 mg/dL (0.2-1.3) 05/31/18 07:33 AST 114 U/L (17-59) H D 05/31/18 07:33 ALT 97 U/L (21-72) H 05/31/18 07:33 Alkaline Phosphatase 119 U/L (38-126) 05/31/18 07:33 Total Protein 7.8 g/dL (6.3-8.3) 05/31/18 07:33 Albumin 4.5 g/dL (3.5-5.0) 05/31/18 07:33 Globulin 3.2 gm/dL (2.2-3.9) 05/31/18 07:33 Albumin/Globulin Ratio 1.4 (1.0-2.1) 05/31/18 07:33 Lipase 219 U/L (23-300) 05/27/18 17:38 Urine Color Straw (YELLOW) 05/27/18 17:43 Urine Clarity Clear (Clear) 05/27/18 17:43 Urine pH 6.0 (5.0-8.0) 05/27/18 17:43 Ur Specific [place] 1.008 (1.003-1.030) 05/27/18 17:43 Urine Protein 2+ mg/dL (NEGATIVE) H 05/27/18 17:43 Urine Glucose (UA) Normal mg/dL (Normal) 05/27/18 17:43 Urine Ketones Negative mg/dL (NEGATIVE) 05/27/18 17:43 Urine Blood 1+ (NEGATIVE) H 05/27/18 17:43 Urine Nitrate Negative (NEGATIVE) 05/27/18 17:43 Urine Bilirubin Negative (NEGATIVE) 05/27/18 17:43 Urine Urobilinogen Normal mg/dL (0.2-1.0) 05/27/18 17:43 Ur Leukocyte Esterase Neg Jana/uL (Negative) 05/27/18 17:43 Urine WBC (Auto) 1 /hpf (0-5) 05/27/18 17:43 Urine RBC (Auto) < 1 /hpf (0-3) 05/27/18 17:43 Ur Squamous Epith Cells < 1 /hpf (0-5) 05/27/18 17:43 Urine Bacteria Rare (<OCC) 05/27/18 17:43 Alcohol, Quantitative 210 mg/dl (0-10) H 05/27/18 17:38 Influenza Typ A,B (EIA) Negative for flu a/b (NEGATIVE) 05/27/18 20:00 - Hospital Course Hospital Course: On admission: HPI: 38 year old male with PMHx of alcohol use disorder presents to ED complaining of severe generalized abdominal pain that radiates to bilateral flanks. Pain began 5 days ago and severely worsened today. Patient states he has been drinking one to two 3L bottles of whisky per day for the past month. However today, he was only able to drink 1/2 bottle due to the abdominal pain. Associated symptoms include chills, headache, dizziness, and feeling too weak to walk. Reports nausea and 3 episodes of vomiting 2 days ago, non-bloody. Also states he has not eaten in the past 2 weeks due to excessive drinking. Denies fever, cough, shortness of breath, palpitations, hematemesis, hematochezia, dysuria, and sick contacts. States he shakes when he stops drinking. Denies history of withdrawal seizure On discharge: Patient was on CIWA protocol for EtOH withdrawal and given ativan as needed with improvement of withdrawal symptoms. Patient states he has been having headaches and been feeling nauseous. Patient also given folate, thiamine, and vitamin B and was also discharged with those supplements. Appointment follow up suggested at [facility] as instructed in discharge instructions. Patient instructions: 1) [facility], [facility]. [phone] 2) Take the following medications. Folic acid - 1 tab daily Multivitamin - 1 tab daily Thiamine - 1 tab daily *avoid tylenol; it is bad for your liver. Your liver is already weak due to your alcohol abuse. 3) Please stop drinking alcohol. 1) Frances un seguimiento con [facility] [place] [facility], [facility]. [phone] 2) Ebenezer los siguientes medicamentos. cido flico - 1 pestaa diaria Multivitamnico - 1 pestaa diaria Tiamina - 1 pestaa diaria * evitar el tylenol; Es max para tu hgado. Silveira hgado ya est dbil debido a silveira abuso de alcohol. 3) Por favor alfreda de beber alcohol. Discharge Exam - Head Exam Head Exam: NORMAL INSPECTION Discharge Plan - Discharge Medications Prescriptions: Folic Acid 1 mg PO DAILY #30 tab Multivitamins [Hexavitamin] 1 tab PO DAILY #30 tab Vitamin B Complex [Berroca] 1 tab PO DAILY #30 tab - Follow Up Plan Condition: FAIR Disposition: HOME/ ROUTINE Instructions: [place] Diet, Alcohol Withdrawal (DC), Alcohol Abuse and Alcoholism (DC), Folic Acid, Vitamin B Complex Combinations, Alcohol Intoxication (DC) Additional Instructions: 1) Follow up with [facility] downstairs of [facility], basement. [phone] 2) Take the following medications. Folic acid - 1 tab daily Multivitamin - 1 tab daily Thiamine - 1 tab daily *avoid tylenol; it is bad for your liver. Your liver is already weak due to your alcohol abuse. 3) Please stop drinking alcohol. 1) Frances un seguimiento con [facility] [place] [facility], [place]. [phone] 2) Ebenezer los siguientes medicamentos. cido flico - 1 pestaa diaria Multivitamnico - 1 pestaa diaria Tiamina - 1 pestaa diaria * evitar el tylenol; Es max para tu hgado. Silveira hgado ya est dbil debido a silveira abuso de alcohol. 3) Por favor alfreda de beber alcohol. Referrals: [facility] at [facility] [Outside] - 06/06/18 2:30 pm
[2018-05-31 16:34] VITALS: BP 122/83; PULSE 84; TEMP 98.4
== END 2018-05-31 17:38 | disposition home or self-care (01) | DRG 775 ==
LOC: C.ER 14:58 → C.9E 18:13 → C.6T 20:20 → OBSVTOIN 05-29 15:18
PROVIDERS: ADMIT Hospitalist; ATTEND Hospitalist
PROC: HZ2ZZZZ Detoxification Services for Substance Abuse Treatment (ICD-10-PCS; principal; 2018-05-29)
DX: F10.239 Alcohol dependence with withdrawal, unspecified (principal); E46 Unspecified protein-calorie malnutrition; E86.0 Dehydration; F10.229 Alcohol dependence with intoxication, unspecified; K29.20 Alcoholic gastritis without bleeding; Z68.24 Body mass index [BMI] 24.0-24.9, adult; Y90.7 Blood alcohol level of 200-239 mg/100 ml